=== PATIENT | male | born 1945 | race Caucasian/White ===

== ENCOUNTER 2018-08-06 20:01 | Emergency (ER) | payer OTHER, SELFPAY ==
[2018-08-06 20:06] VITALS: BP 190/88; PULSE 66; RESP 16; O2SAT 100; BMI 26.7
--- NOTE | 2018-08-06 20:09 | ED_ITS ---
HPI - Epistaxis General Chief complaint: Nasal Problem Stated complaint: NON STOP NOSE BLEED Time Seen by Provider: 08/06/18 20:04 Source: patient and family Mode of arrival: ambulatory Limitations: no limitations History of Present Illness HPI Narrative: 73-year-old male nonsmoker presents with left-sided nose bleed which started spontaneously last evening. He denies any injury, trauma or history of the same. He denies use of any blood thinners. He did have rather typical viral upper respiratory complaints about a week ago but is otherwise well. He was passing fresh clots and swallowed a few. A ventrally the blood started coming from his right nostril as well. He denies any dizziness, weakness or lightheadedness. MD complaint: epistaxis Location: left nostril Onset (ago): day(s) Duration: constant Treatment prior to arrival: nose pinching and head tilted back Related Data Allergies Allergy/AdvReac Type Severity Reaction Status Date / Time No Known Drug Allergies Allergy Verified 08/06/18 20:08 Review of Systems Constitutional Denies chills, Denies fever(s), Denies lethargy and Denies weakness Eyes Denies change in vision, Denies eye discharge, Denies irritation and Denies loss of vision ENT Ears, Nose, Mouth, and Throat: Denies change in voice, Reports epistaxis, Denies neck pain and Denies sore throat Cardiovascular Denies chest pain, Denies irregular heart rhythm, Denies lightheadedness, Denies palpitations, Denies dyspnea, Denies dyspnea on exertion and Denies orthopnea Respiratory Denies cough, Denies dyspnea, Denies dyspnea on exertion and Denies wheezing Gastrointestinal Gastrointestinal: Denies abdominal pain, Denies change in bowel habits, Denies diarrhea, Denies nausea and Denies vomiting Genitourinary Denies hematuria, Denies flank pain, Denies urinary incontinence and Denies urinary urgency Musculoskeletal Denies neck pain Integumentary/Breasts Denies pruritus, Denies erythema, Denies rash and Denies wounds Neurologic Denies confusion, Denies loss of vision and Denies weakness Psychiatric Denies anxiety, Denies confusion, Denies depression, Denies homicidal ideation and Denies suicidal ideation Endocrine Denies palpitations Hematologic/Lymphatic Denies easy bruising Allergic/Immunologic Denies wheezing [facility] Social History Smoking Status: Former smoker Social History Smoking Status: Former smoker Exam Narrative Exam Narrative: GENERAL: Pleasant 73-year-old male appears stated age, dried blood on his sugar, pinching his nose HEAD: Atraumatic. Normocephalic. No temporal or scalp tenderness. EYES: Pupils equal round and reactive. Extraocular motions intact. No scleral icterus. No injection or drainage. ENT: Minimal active bleeding, noted large clots in both nares, initially source of bleeding not noted but after suctioning active bleeding noted on left nasal septum NECK: Trachea midline. No JVD or lymphadenopathy. Supple, nontender, no meningeal signs. CARDIOVASCULAR: Regular rate and rhythm without murmurs, gallops, or rubs. RESPIRATORY: Clear to auscultation. Breath sounds equal bilaterally. No wheezes, rales, or rhonchi. GASTROINTESTINAL: Abdomen soft, non-tender, nondistended. No hepato- splenomegaly, or palpable masses. No guarding. EXTREMITIES: No clubbing, cyanosis, or edema. No joint tenderness, effusion, or edema noted. BACK: Nontender without deformity or crepitance. No flank tenderness. NEURO: AOx3. SKIN: No rash or erythema. Initial Vital Signs Initial Vital Signs: Vital Signs Pulse Rate 66 08/06/18 20:06 Respiratory Rate 16 08/06/18 20:06 Blood Pressure 190/88 H 08/06/18 20:06 Pulse Oximetry 100 08/06/18 20:06 Procedures Epistaxis Control Time Out Performed: No Nostril: left Nose Prepped With: oxymetazoline Direct Inspection: yes Clots Removed by: blowing nose and suction Cautery Used: silver nitrate Patient Tolerated Procedure: well Course Vital Signs - 8 hr 08/06/18 20:06 08/06/18 21:39 Pulse Rate 66 50 L Respiratory Rate 16 Blood Pressure 190/88 H Blood Pressure [Right Arm] 174/87 H Pulse Oximetry 100 99 Discharge Plan Departure Patient Disposition: Home Clinical Impression: Epistaxis Discharge Date/Time: 08/06/18 21:59 Interventions: ED Discharge Assessment Last Done: 08/06/18 21:58 Instructions: DI for Nosebleed Activity Restrictions/Additional Instructions: *You have been diagnosed with [ acute anterior epistaxis ] *What to do: * do not blow your nose, stick your finger in her nose, or disturb nose for the next 24 hr. If you must sneeze please sneeze out your mouth like we talked about *Follow up with your primary care provider or ENT doctor in 2-3 days, call for an appointment. Let them know you were seen in the Emergency Department and that we ask that you be seen in follow up *Return to ER if you should have any new, worsening or concerning symptoms * if you are bleeding starts again at home please place a portion of a cotton ball in your nostril and squirt some of the Afrin you were given in your nose. Apply the nose clamp and uses a watch or o'clock to time yourself for 15 min. At the end 15 min recheck for bleeding, if you continue to bleed please repeat the process for another 15 min. If at the end of 30 min you still have bleeding you should return to the emergency department Referrals: Dontrell Veras MD [Physician] -
[2018-08-06 21:39] VITALS: BP 174/87; PULSE 50; O2SAT 99
== END 2018-08-06 21:59 | disposition home or self-care (01) ==
PROVIDERS: Emergency Provider Emergency Medicine
DX: R04.0 Epistaxis (principal)
CPT/HCPCS: 17250; 30901; 99282; 99283